=== PATIENT | female | born 1975 | race Caucasian/White ===

== ENCOUNTER 2022-09-13 23:52 | Emergency (ER) | payer OTHER ==
[~2022-09-13] VITALS: Ht 162.6 cm; Wt 65.8 kg
[2022-09-14 00:25] VITALS: BP_SYST 137
--- NOTE | 2022-09-14 00:31 | NUR ---
Triaged and placed patient back to the waiting room. No acute respiratory distress at this time. VSS. Informed patient to notify ED staff for any changes in condition or worsening of symptoms while waiting to be seen by a provider. Patient verbalized understanding.
--- NOTE | 2022-09-14 00:32 | NUR ---
Patient arrived for c/o left foot, pinky pain because she hit her foot on the bed a certain way just now. She denies taking any medication prior to arrival. Patient had past medical history of SVT in the past but "it has resolved now." Alert and oriented x4. Respiration even and unlabored. No shortness of breath. Will continue to monitor.
[2022-09-14] MEDS ORDERED: OXYCODONE/ACETAMINOPHEN 5-325 TABLET PO ONE (01:30)
[2022-09-14] MEDS ORDERED: IBUP-1969 PO (02:37)
[2022-09-14] MEDS ORDERED: PERC10 PO (02:37)
[2022-09-14] MEDS ORDERED: ACET-2634 PO (02:37)
[2022-09-14 02:53] VITALS: BP_SYST 128
--- NOTE | 2022-09-14 03:02 | NUR ---
Patient given written and verbal discharge instructions and verbalizes understanding. ER MD discussed with patient the results and treatment provided. Patient in stable condition. ID arm band removed. IV catheter removed intact and dressing applied, no active bleeding. Rx of given. Patient educated on pain management and to follow up with PMD. Pain Scale . Opportunity for questions provided and answered. Medication side effect fact sheet provided.
== END 2022-09-14 02:53 | disposition home or self-care (01) ==
LOC: SED 23:52
DX: S92.512A Displaced fracture of proximal phalanx of left lesser toe(s), initial encounter for closed fracture (principal); Z88.8 Allergy status to other drugs, medicaments and biological substances; Z79.899 Other long term (current) drug therapy; W22.8XXA Striking against or struck by other objects, initial encounter; Y93.89 Activity, other specified; Y92.89 Other specified places as the place of occurrence of the external cause; Y99.8 Other external cause status
CPT/HCPCS: 99283